=== PATIENT | male | born 1965 | race African-American/Black ===

== ENCOUNTER 2020-03-12 15:33 | Emergency (ER) | payer MEDICAID ==
[~2020-03-12] VITALS: Ht 175.3 cm; Wt 120.0 kg
[2020-03-12 17:30] LABS: BASOPHILS % 0.5 % (0.0-2.0); EOSINOPHILS % 1.5 % (0.0-5.0); HEMATOCRIT. 44.6 % (42.0-52.0); HEMOGLOBIN. 14.5 g/dL (14.0-18.0); LYMPHOCYTES % 33.6 % (20.0-50.0); MEAN CORPUSCULAR HEMOGLOBIN 27.7 pg (28.0-32.0); MEAN CORPUSCULAR VOLUME 84.9 fL (80.0-94.0); MEAN PLATELET VOLUME 9.3 fl (7.4-10.4); MONOCYTES % 10.9 % (2.0-8.0); NEUTROPHILS % 53.5 % (40.0-76.0); PLATELET 221 x1000/uL (130-400); RED BLOOD CELL COUNT 5.25 mill/uL (4.7-6.1); RED CELL DISTRIBUTION WIDTH 15.6 % (11.6-14.6)
[2020-03-12] MEDS ORDERED: ALBUTEROL 6.7GM HFA INHALER ORI ONE (17:30)
[2020-03-12] MEDS ORDERED: SODIUM CHLORIDE 0.9% 1,000 ML IV ONE (17:30)
[2020-03-12 17:36] LABS: PROTHROMBIN TIME 10.5 sec (9.6-11.0)
[2020-03-12 17:48] LABS: CHLORIDE 112 mEq/L (98-107)
[2020-03-12 17:52] LABS: ETHANOL BLOOD < 10 mg/dL
[2020-03-12 17:56] LABS: CLARITY URINE CLEAR (CLEAR); COLOR URINE YELLOW (YELLOW); KETONES URINE TRACE (NEGATIVE); LEUKOCYTE ESTERASE URINE NEGATIVE (NEGATIVE); NITRITE URINE NEGATIVE (NEGATIVE); OCCULT BLOOD URINE NEGATIVE (NEGATIVE); PROTEIN URINE NEGATIVE (NEGATIVE); SPECIFIC GRAVITY URINE 1.022 (1.005-1.030)
[2020-03-12 18:14] LABS: CANNABINOID URINE SCREEN NEGATIVE (NEGATIVE); OPIATES URINE SCREEN NEGATIVE (NEGATIVE); PHENCYCLIDINE URINE SCREEN NEGATIVE (NEGATIVE)
[2020-03-12 18:15] LABS: *AMPHETAMINES SCREEN URINE PRESUMTIVE POSITIVE (NEGATIVE); *BARBITURATES SCREEN URINE NEGATIVE (NEGATIVE); *BENZODIAZEPINES SCREEN URINE NEGATIVE (NEGATIVE); *COCAINE SCREEN URINE NEGATIVE (NEGATIVE); METHADONE URINE SCREEN NEGATIVE (NEGATIVE)
[2020-03-12] MEDS ORDERED: METHYLPREDNISOLONE SOD SUCC 125 MG/2 ML VIAL IV ONE (18:15)
[2020-03-12] MEDS ORDERED: ALBU6.7H11 INH (18:34)
[2020-03-12] MEDS ORDERED: P20 MT (18:34)
[2020-03-12 22:37] VITALS: BP 123/85
[2020-03-12] MEDS ORDERED: IOHEXOL-350 100 ML BOTTLE ONE (22:42)
== END 2020-03-12 22:57 | disposition home or self-care (01) ==
LOC: ER 15:33 → CANBEDREQ 03-13 03:39
DX: R53.1 Weakness (principal); F15.10 Other stimulant abuse, uncomplicated; E11.9 Type 2 diabetes mellitus without complications; J45.909 Unspecified asthma, uncomplicated; F17.210 Nicotine dependence, cigarettes, uncomplicated
CPT/HCPCS: 36415; 71045; 71275; 80053; 80305; 80320; 81003; 83605; 83880; 84145; 84484; 85025; 85379; 85610; 87086; 93005; 96361; 96374; 99285; J2930; J7030; Q9967; G0480